=== PATIENT | female | born 1995 ===

== ENCOUNTER 2018-03-10 17:50 | Inpatient (IN) | payer SELFPAY ==
[~2018-03-10] VITALS: Ht 149.9 cm; Wt 54.4 kg
[2018-03-10 18:12] LABS: BASOPHILS # (AUTO) 0.1 K/uL (0.0-8.0); BASOPHILS % (AUTO) 0.7 % (0.0-2.0); EOSINOPHILS # (AUTO) 0.1 K/uL (0.0-0.7); EOSINOPHILS % (AUTO) 1.7 % (0.0-7.0); HEMATOCRIT 35.6 % (31.2-41.9); HEMOGLOBIN 11.8 g/dL (10.9-14.3); LYMPHOCYTES # (AUTO) 2.3 K/uL (20.0-40.0); LYMPHOCYTES % (AUTO) 29.8 % (20.5-51.5); MEAN CORPUSCULAR HEMOGLOBIN 28.6 uug (24.7-32.8); MEAN CORPUSCULAR HGB CONC 33 g/dL (32.3-35.6); MEAN CORPUSCULAR VOLUME 86.6 fL (75.5-95.3); MONOCYTES # (AUTO) 0.6 K/uL (2.0-10.0); MONOCYTES % (AUTO) 8.1 % (0.0-11.0); NEUTROPHILS # (AUTO) 4.7 K/uL (1.8-8.9); NEUTROPHILS % (AUTO) 59.7 % (38.5-71.5); PLATELET COUNT (AUTO) 337 K/uL (179-408); RED BLOOD CELL COUNT(AUTO) 4.12 MIL/uL (3.63-4.92); WHITE BLOOD COUNT (AUTO) 7.8 K/uL (3.8-11.8)
[2018-03-10 18:21] LABS: CARBON DIOXIDE 24 mmol/L (21-32); CHLORIDE 100 mmol/L (98-107); GLUCOSE 139 mg/dL (74-106); POTASSIUM 3.6 mmol/L (3.5-5.1); UREA NITROGEN, BLOOD 19 mg/dL (7-18)
[2018-03-10 18:27] LABS: ALANINE AMINOTRANSFERASE 29 U/L (14-59); ALKALINE PHOSPHATASE 110 U/L (50-136); ASPARTATE AMINOTRANSFERASE 32 U/L (15-37); BILIRUBIN,DIRECT 0.2 mg/dL (0.0-0.2); BILIRUBIN,TOTAL 0.7 mg/dL (0.2-1.0)
[2018-03-10 18:36] LABS: ETHANOL < 3 MG/DL (0-0)
--- NOTE | 2018-03-10 18:45 | NUR ---
at bedside to examine patient. Addendum: 03/10/18 at 1845 by ELANA patient crying screaming in pain.
--- NOTE | 2018-03-10 18:51 | NUR ---
With in the room patient restless agitated, verbally and physically aggressive started throwing everything in the room. Patient almost hit DrCarlos with bedside table. and hit tv against the wall. Shannon ceballos called.
[2018-03-10] MEDS ORDERED: ONDANSETRON 4 MG/2 ML VIAL ONE (18:54)
[2018-03-10] MEDS ORDERED: MORPHINE SULFATE 4 MG/1 ML DISP.SYRIN ONE (18:54)
--- NOTE | 2018-03-10 18:55 | NUR ---
Patient medicated as ordered.
[2018-03-10] MEDS ORDERED: MORPHINE SULFATE 4 MG/1 ML DISP.SYRIN IM ONE (19:00)
[2018-03-10] MEDS ORDERED: LORAZEPAM 2 MG/1 ML VIAL IM ONE (19:00)
[2018-03-10] MEDS ORDERED: ONDANSETRON 4 MG/2 ML VIAL IM ONE (19:00)
[2018-03-10] MEDS ORDERED: diphenhydrAMINE 50 MG/1 ML VIAL IM ONE (19:00)
[2018-03-10] MEDS ORDERED: LORAZEPAM 2 MG/1 ML VIAL ONE (19:02)
[2018-03-10] MEDS ORDERED: diphenhydrAMINE 50 MG/1 ML VIAL ONE (19:03)
--- NOTE | 2018-03-10 19:08 | NUR ---
Bedside report given to online content developer rrichard
[2018-03-10] MEDS ORDERED: NEOMY/BACITRA/POLYMYXIN B OINT UD PACKET TP ONE ×2 (19:30→19:39)
[2018-03-10] MEDS ORDERED: IV NORMAL SALINE 1000 ML BAG IV ONE (19:30)
[2018-03-10] MEDS ORDERED: ACYCLOVIR IV 500 MG in IV DEXTROSE 5% 100 ML IV ONE (19:30)
[2018-03-10] MEDS ORDERED: CEFTRIAXONE 1 G in IV DEXTROSE 5% 50 ML IV ONE (19:30)
[2018-03-10] MEDS ORDERED: GABAPENTIN 100 MG CAPSULE PO ONE (19:30)
[2018-03-10] MEDS ORDERED: DEXAMETHASONE SOD PHOSPHATE 4 MG INJ IV ONE (19:30)
[2018-03-10] MEDS ORDERED: AZITHROMYCIN 250 MG TABLET PO ONE (19:30)
[2018-03-10] MEDS ORDERED: GABAPENTIN 100 MG CAPSULE ONE (19:39)
[2018-03-10] MEDS ORDERED: DEXAMETHASONE SOD PHOSPHATE 10 MG INJ ONE (19:39)
[2018-03-10] MEDS ORDERED: AZITHROMYCIN 250 MG TABLET ONE (19:39)
[2018-03-10] MEDS ORDERED: CEFTRIAXONE 1 G VIAL ONE (19:39)
[2018-03-10] MEDS ORDERED: ACYCLOVIR 500 MG VIAL IV ONE (20:25)
[2018-03-10] MEDS ORDERED: MISCELLANEOUS MED XX ONE ×2 (21:15→21:30)
[2018-03-10] MEDS ORDERED: MORPHINE SULFATE 2 MG/1 ML DISP.SYRIN IV PRN (21:15)
[2018-03-10] MEDS ORDERED: HYDROCODONE/APAP 5-325MG TABLET PO PRN (21:15)
[2018-03-10] MEDS ORDERED: LORAZEPAM 2 MG/1 ML VIAL IV PRN (21:15)
[2018-03-10] MEDS ORDERED: ACETAMINOPHEN 325 MG TABLET PO PRN (21:15)
[2018-03-10] MEDS ORDERED: MAGNESIUM HYDROXIDE 30 ML LIQUID UDC PO PRN (21:15)
[2018-03-10] MEDS ORDERED: ONDANSETRON 4 MG/2 ML VIAL IV PRN (21:15)
[2018-03-10] MEDS ORDERED: DOXYCYCLINE HYCLATE IV 200 MG in IV DEXTROSE 5% 250 ML IV ONE (21:30)
[2018-03-10] MEDS ORDERED: DOXYCYCLINE HYCLATE 100 MG INJ IV ONE (21:32)
--- NOTE | 2018-03-10 21:50 | NUR ---
Pt. admitted to Med/Surg , under care of Fernandez GIORDANO. Belongs List completed Report given to Kevin KEENAN.
--- NOTE | 2018-03-10 22:15 | NUR ---
RECEIVED PATIENT VIA GURNEY FROM ER. UPON ARRIVAL TO FLOOR, PATIENT IS OBTUNDED. PATIENT WAS PREVIOUSLY MEDICATED IN ER PRIOR TO ADMISSION. AROUSABLE BUT QUICKLY FALLS BACK ASLEEP. VSS ON ARRIVAL. NO S/S OF SOB OR RESP. DISTRESS NOTED. ON RA SATING 96-97%. HEPLOCK INTACT AND PATENT, NOTED TO RIGHT AC #20 GAUGE. PATIENT MADE COMFORTABLE IN BED. BED ALARM ON. CALL LIGHT IN REACH. ALL NEEDS ATTENDED. WILL CONTINUE TO MONITOR AND ASSESS.
[2018-03-10 22:29] VITALS: BP 93/53
[2018-03-10] MEDS: IV NS 1000 ML 1,000 ML IV PRN (22:40)
[2018-03-10] MEDS ORDERED: ZOLPIDEM 5 MG TABLET PO PRN (23:15)
--- NOTE | 2018-03-10 23:51 | NUR ---
PATIENT SLEEPING IN BED. NO RESP. DISTRESS NOTED. BED ALARM ON. ALL NEEDS ATTENDED. WILL CONTINUE TO MONITOR.
[2018-03-11 04:25] VITALS: BP 111/60
[2018-03-11] MEDS ORDERED: ACYCLOVIR 500 MG VIAL IV ONE (06:03)
[2018-03-11] MEDS: ACYCLOVIR IV 500 MG in IV DEXTROSE 5% 100 ML IV SCH ×3 (06:24→22:04)
--- NOTE | 2018-03-11 06:28 | NUR ---
PATIENT ASLEEP. EASILY AROUSABLE, BUT FALLS BACK TO SLEEP. IVF INFUSING WELL. NO RESP. DISTRESS NOTED. CALL LIGHT IN REACH. BED ALARM ON. ALL NEEDS ATTENDED. WILL CONTINUE TO MONITOR.
[2018-03-11 06:51] LABS: BASOPHILS % (AUTO) 0.1 % (0.0-2.0); EOSINOPHILS % (AUTO) 0.1 % (0.0-7.0); HEMATOCRIT 35.3 % (31.2-41.9); HEMOGLOBIN 11.6 g/dL (10.9-14.3); LYMPHOCYTES # (AUTO) 0.9 K/uL (20.0-40.0); LYMPHOCYTES % (AUTO) 11.6 % (20.5-51.5); MEAN CORPUSCULAR HEMOGLOBIN 28.8 uug (24.7-32.8); MEAN CORPUSCULAR HGB CONC 33 g/dL (32.3-35.6); MEAN CORPUSCULAR VOLUME 87.9 fL (75.5-95.3); MONOCYTES # (AUTO) 0.6 K/uL (2.0-10.0); MONOCYTES % (AUTO) 7.2 % (0.0-11.0); NEUTROPHILS # (AUTO) 6.3 K/uL (1.8-8.9); PLATELET COUNT (AUTO) 321 K/uL (179-408); RED BLOOD CELL COUNT(AUTO) 4.02 MIL/uL (3.63-4.92); WHITE BLOOD COUNT (AUTO) 7.7 K/uL (3.8-11.8)
[2018-03-11 07:04] LABS: CREATININE 0.7 mg/dL (0.6-1.3); POTASSIUM 4.5 mmol/L (3.5-5.1)
--- NOTE | 2018-03-11 07:52 | NUR ---
Sleeping, appears comfortable. Not in distress. IVF infusing
--- NOTE | 2018-03-11 09:00 | NUR ---
Awake, alert, oriented x 3, calm, cooperative. Ate breakfast. Assisted to the shower
[2018-03-11] MEDS: DEXAMETHASONE SOD PHOSPHATE 4 MG INJ IV SCH ×2 (09:08→20:18)
[2018-03-11] MEDS: GABAPENTIN 100 MG CAPSULE PO SCH ×3 (09:08→17:26)
--- NOTE | 2018-03-11 11:30 | NUR ---
Dr. Barrios seen and examined patient with nurse at bedside.
[2018-03-11 11:45] VITALS: BP 98/57
[2018-03-11 15:40] VITALS: BP 97/57
[2018-03-11] MEDS: IV NS 1000 ML 1,000 ML IV PRN (17:29)
--- NOTE | 2018-03-11 18:42 | NUR ---
Patient been removing hat to collect urine sample. Instructed for collection of urine sample.
[2018-03-11 19:00] VITALS: BP 106/78
--- NOTE | 2018-03-11 20:00 | NUR ---
Received patient laying comfortably in bed. No acute distress noted. A/O x 4, calm and cooperative. Patient c/o of slight itching and burning in the vaginal area. Patient ambulates to the restroom with minimal assistance. Noted crusting like in the labia. IVF infusing on the right AC, patent and intact. Noted healing abrasion on the right de [place] santos. Safety initiated. Bed in low and locked position. Room is left clutter free. Call light within reach. Will continue to monitor.
[2018-03-11] MEDS: CEFTRIAXONE 1 G in IV DEXTROSE 5% 50 ML IV SCH (20:11)
[2018-03-11] MEDS: CLOTRIMAZOLE 1% VAG CREAM 45 GM TUBE VG SCH (20:11)
[2018-03-11] MEDS: METRONIDAZOLE 500 MG/NS 100ML 500 MG in PREMIXED 1 EACH IV SCH (21:19)
[2018-03-12 03:32] LABS: *BILIRUBIN,URIN NEGATIVE (NEGATIVE); *BLOOD, URINE Trace-intact (NEGATIVE); *CLARITY,URINE CLOUDY (CLEAR); *COLOR,URINE YELLOW (YELLOW); *KETONES,URINE NEGATIVE (NEGATIVE); *PROTEIN,URINE NEGATIVE (NEGATIVE); *UROBILINOGEN,URINE 0.2 E.U./dl (NORMAL); LEUKOCYTE ESTERASE ,URINE 3+ (NEGATIVE); NITRITE, URINE NEGATIVE (NEGATIVE); PH,URINE 7.5 (5.0-8.0); UGLUCOSE NEGATIVE (NEGATIVE)
[2018-03-12 03:37] LABS: BACTERIA,URINE FEW /HPF (NONE SEEN); SQUAMOUS EPITHELIAL CELL,UR FEW /HPF (NONE SEEN)
[2018-03-12 03:38] LABS: URINE AMORPHOUS PHOSPHATES FEW /HPF
[2018-03-12 03:47] LABS: *AMPHETAMINE, URINE NEGATIVE (NEGATIVE); *BARBITURATE, URINE NEGATIVE (NEGATIVE); *CANNABINOID, URINE NEGATIVE (NEGATIVE); *COCCAINE, URINE NEGATIVE (NEGATIVE); *OPIATE, URINE POSITIVE (NEGATIVE); *PHENCYCLIDINE SCREEN,URINE NEGATIVE (NEGATIVE)
[2018-03-12 04:00] VITALS: BP 112/64
[2018-03-12] MEDS: METRONIDAZOLE 500 MG/NS 100ML 500 MG in PREMIXED 1 EACH IV SCH ×3 (05:06→21:25)
--- NOTE | 2018-03-12 05:36 | NUR ---
Patient slept intermittently t/o shift. Remains A/O x 4. C/o pelvic area discomfort. IVF infusing in the right FA. Good urine output. UA sent to lab. Safety and comfort measures maintained t/o shift. Vital signs remains stable. All meds given as ordered. All needs met.
[2018-03-12] MEDS ORDERED: ACYCLOVIR 500 MG VIAL IV ONE (05:49)
[2018-03-12] MEDS: ACYCLOVIR IV 500 MG in IV DEXTROSE 5% 100 ML IV SCH ×3 (06:00→22:12)
[2018-03-12] MEDS: GABAPENTIN 100 MG CAPSULE PO SCH ×3 (08:29→16:52)
[2018-03-12] MEDS: DEXAMETHASONE SOD PHOSPHATE 4 MG INJ IV SCH ×2 (08:32→20:10)
--- NOTE | 2018-03-12 09:00 | NUR ---
PATIENT C/O OF ITCHING IN VAGINAL AREA, LUZ CARE PROVIDED, PT STATED RELIEF. WILL CONTINUE TO MONITOR.
[2018-03-12 11:00] VITALS: BP 106/60
[2018-03-12] MEDS: IV NS 1000 ML 1,000 ML IV PRN (13:26)
[2018-03-12 15:11] VITALS: BP 108/49
--- NOTE | 2018-03-12 18:00 | NUR ---
PATIENT STATED PELVIC PAIN DECREASED COMPARED TO YESTERDAY. IV ANTIBIOTIC ADMINISTERED ORDERED. IV FLUID INFUSING, NO INFILTRATION NOTED. SAFETY MEASURES IN PLACE.
[2018-03-12 19:00] VITALS: BP 102/58
--- NOTE | 2018-03-12 19:10 | NUR ---
RECEIVED PT ASLEEP ON BED, NO SIGNS OF RESPIRATORY DISTRESS NOTED. IV SITE ON RAC, PATENT AND INTACT. SAFETY MEASURES INITIATED, CALL ALAS WITHIN REACH.
[2018-03-12] MEDS: CEFTRIAXONE 1 G in IV DEXTROSE 5% 50 ML IV SCH (20:10)
[2018-03-12] MEDS: CLOTRIMAZOLE 1% VAG CREAM 45 GM TUBE VG SCH (20:31)
[2018-03-13 04:00] VITALS: BP 104/70
[2018-03-13] MEDS: METRONIDAZOLE 500 MG/NS 100ML 500 MG in PREMIXED 1 EACH IV SCH (05:21)
[2018-03-13] MEDS: ACYCLOVIR IV 500 MG in IV DEXTROSE 5% 100 ML IV SCH (05:53)
--- NOTE | 2018-03-13 06:48 | NUR ---
PT ASLEEP ON BED, NO SIGNS OF RESPIRATORY DISTRESS NOTED. PT HAS BEEN COOPERATIVE WITH CARE. SAFE ENVIRONMENT MAINTAINED AT ALL TIMES, CALL ALAS WITHIN REACH. Addendum: 03/13/18 at 0654 by KAREY RALPH RN NO COMPLAINT OF PELVIC OR VAGINAL PAIN.
[2018-03-13] MEDS: GABAPENTIN 100 MG CAPSULE PO SCH ×2 (08:24→12:31)
[2018-03-13] MEDS: DEXAMETHASONE SOD PHOSPHATE 4 MG INJ IV SCH (08:25)
[2018-03-13] MEDS ORDERED: ACYC400T PO (11:27)
[2018-03-13] MEDS ORDERED: HYDR-3326 PO (11:27)
[2018-03-13] MEDS ORDERED: METR500T PO (11:27)
--- NOTE | 2018-03-13 11:28 | NUR ---
flight attendant/inflight manager Jamie called upon this SW for assistance with community resources. Jamie stated that patient's doctor had stated that patient had requested information on homeless shelters. SW discussed case with Jamie, and then SW met with patient. Patient was in bed in her assigned hospital room. Patient was receptive to meeting with SW, although stated that she was tired and sleepy since she hadn't slept much at night. Patient is a 23 year old female who came to the ED for vaginal pain (see ED notes and physician's notes for details). Patient stated that she does not have a stable place of residence and "couch surfs", living in difference places with different friends. Patient reported that "my friends and I work together to make money and to get food". Patient reported no steady income and did not identify the source of her income. Patient stated that her parents are going through a divorce and she has been "on my own and exploring" for a while. Patient also has a younger brother whom she sees from time to time. SW assisted patient in exploring what community resources she would like to have information on, and patient agreed for SW to provide her with information on homeless shelters, foods rubio, places where she could get meals and take showers, and low-income clinics. Patient's records show that patient is self-pay, and patient stated that she wasn't sure if she still had insurance under her father's insurance plan or not. SW spoke with Macey in admitting and asked her to look into patient's insurance status, and to refer her to the hospital's [employer] international sales representative if patient does not have any insurance. Macey agreed. Patient was also in agreement. SW provided patient with the following resources: 1) Shelters: [facility] [address]; and [facility] [address]. 2) Low income/Free clinics: a) [facility] [address], b) [facility] [address], c) [facility] [address], 3) Showers and Hot Meals a) [facility], [address] [place] b) [facility], [address], [place] c) [facility], [address] d) [facility], [address] [place] 4) Food Pantries (includes days of the week that each location distributes food) a) [facility] [address] [facility], b) [facility], [place] [phone] c) [facility], d) [facility], e) [facility], Patient expressed being thankful to for these resources. Copy of the resources filed in patient's chart.
[2018-03-13 11:54] VITALS: BP 90/51
[2018-03-13 14:11] VITALS: BP 101/56
--- NOTE | 2018-03-13 14:11 | NUR ---
PT DC TO A SENIOR LIVING. PT DID NOT VERBALIZE WHAT SENIOR LIVING SHE WILL BE GOING TO. PT WAS PROVIDED TWO DOLLARS FOR THE BUS. PT PROVIDED A PACKET WITH RESOURCES FOR FOOD, SENIOR LIVING, AND FREE CLINICS. PRESCRIPTIONS, EXIT-CARE PACKET, AND BELONGINGS WERE GIVEN TO THE PT. AT FIRST PT REFUSED HELP WITH MAKING AN APPOINTMENT. NOW SHE ALLOW ME TO HELP AND SHE HAS AN APPOINTMENT AT [facility] AT 1300. PT IS CALM, COOPERATIVE.
[2018-03-14 09:07] LABS: *TRIC.VAG. NAA Positive (Negative)
[2018-03-14 12:08] LABS: *GC NAA Negative (Negative)
== END 2018-03-13 14:11 | disposition home or self-care (01) | DRG 155 ==
LOC: ER 17:53 → MED 21:33
PROVIDERS: ADMIT Nurse Practitioner Acute Care; ATTEND Nurse Practitioner Acute Care
DX: B00.1 Herpesviral vesicular dermatitis (principal); E87.1 Hypo-osmolality and hyponatremia; N76.0 Acute vaginitis; Z59.0 Homelessness; Z72.51 High risk heterosexual behavior; Z57.8 Occupational exposure to other risk factors; F41.9 Anxiety disorder, unspecified; F15.10 Other stimulant abuse, uncomplicated; F10.10 Alcohol abuse, uncomplicated; Y90.9 Presence of alcohol in blood, level not specified; E86.0 Dehydration; A64 Unspecified sexually transmitted disease
CPT/HCPCS: 36415; 80307; 84703; 85025; 86592; 87086; 87491; 87536; 87806; A4663; G0480; J0133; J0696; J1100; J1200; J2060; J2270; J2405; J3490; J7030; J7060; Q0144